=== PATIENT | male | born 1965 | race Caucasian/White ===

== ENCOUNTER 2024-12-07 17:59 | Emergency (ER) | payer MEDICAID ==
[2024-12-07 18:21] VITALS: TEMP 97.7
--- NOTE | 2024-12-07 18:40 | ERPHSYRPT ---
<GARCIALEONARDO OSBORNDO Aashish - Last Filed: 12/07/24 18:41> - History of Present Illness Time Seen by Provider: 12/07/24 18:20 Historian: patient, EMS Exam Limitations: no limitations Patient Subjective Stated Complaint: Pt reports he was watching tv when she started having left sided chest pain. EMS was called who gave him one nitro and 4 tabs of 81mg aspirin which decreased pts chest pain. Triage Nursing Assessment: Pt alert and oriented x3. Respirations easy/nonlabored. Skin w/p/d. Transfered from EMS cot to ED cot with slow gait. S1 and S2 auscultated. Physician History: This is a cachectic appearing 59-year-old white male who was brought to the emergency department by the paramedics. Patient is homeless and currently living in a motel. He is not taking any medications. He has no cardiac history per his report. It appears to me the patient is not the best historian. Patient states he is supposed to be on thyroid medication but is not on it. Patient was watching TV when he started having significant left anterior chest pain without radiation. He was given 4 baby aspirin and 1 nitroglycerin by the paramedics. His symptoms did improve but did not completely resolve his pain. Patient is a daily smoker of tobacco cigarettes. Patient also complains of significant generalized body pain. Timing/Duration: today Quality: aching, sharpness Location: other (Anterior chest) Chest Pain Radiation: no radiation Severity of Pain-Max: moderate Severity of Pain-Current: mild Modifying Factors: Improves With: nitroglycerin, aspirin Associated Symptoms: denies symptoms Prior Chest Pain/Cardiac Workup: no prior chest pain, no prior cardiac workup Nitro Today/Relief: 0.4 mg x 1, provided by EMS Aspirin Treatment Today: 81 mg x 4, provided by EMS Allergies/Adverse Reactions: doxycycline [From Vibramycin] Adverse Reaction (Verified 12/07/24 18:06) Penicillins Adverse Reaction (Verified 12/07/24 18:06) Home Medications: No Reportable Medications [No Reported Medications] 12/07/24 [History] Hx Tetanus, Diphtheria Vaccination/Date Given: (unknown) Hx Influenza Vaccination/Date Given: No Travel Risk - International Travel Have you traveled outside of the country in past 3 weeks: No - Emerging Infectious Disease Are you exhibiting symptoms associated with any current EIDs: Yes - Review of Systems Constitutional: No Symptoms Eyes: No Symptoms Ears, Nose, & Throat: No Symptoms Respiratory: No Symptoms Cardiac: Chest Pain Abdominal/Gastrointestinal: No Symptoms Genitourinary Symptoms: No Symptoms Musculoskeletal: Arthralgias, Myalgias Skin: No Symptoms Neurological: No Symptoms Psychological: No Symptoms Endocrine: No Symptoms Hematologic/Lymphatic: No Symptoms Immunological/Allergic: No Symptoms All Other Systems: Reviewed and Negative - Past Medical History Pertinent Past Medical History: Yes Respiratory History: Other Endocrine Medical History: Hyperthyroidism Psycho-Social History: Anxiety, Depression Other Medical History: mass right lung - Past Surgical History Past Surgical History: No - Social History Smoking Status: Current every day smoker Exposure to second hand smoke: No Drug Use: marijuana - Social Determinants of Health Will the patient participate in the screening: Declined to provide Comment: pts states "im living in a motel right now". - Physical Exam General Appearance: no apparent distress, alert, anxiety, cachetic Eye Exam: PERRL/EOMI, eyes nml inspection Ears, Nose, Throat Exam: normal ENT inspection, moist mucous membranes Neck Exam: normal inspection, non-tender, supple, full range of motion Respiratory Exam: normal breath sounds, chest tenderness, lungs clear (Left anterior chest), airway intact, No respiratory distress Cardiovascular Exam: regular rate/rhythm, normal heart sounds, normal peripheral pulses Gastrointestinal/Abdomen Exam: soft, normal bowel sounds, No tenderness Rectal Exam: deferred, not done Back Exam: normal inspection, normal range of motion, No CVA tenderness Extremity Exam: normal inspection, normal range of motion, pelvis stable, tenderness (Complains of muscle aches and pains right hand worse than left. He did fall a week and a half ago) Neurologic Exam: alert, oriented x 3, cooperative, photo printer II-XII nml as tested, sensation nml Skin Exam: normal color, warm, dry Lymphatic Exam: No adenopathy SpO2 Interpretation: normal SpO2: 99 O2 Delivery: Room Air - Course Nursing assessment & vital signs reviewed: Yes EKG Interpreted by Me: RATE (81), Sinus Rhythm, NORMAL AXIS, NORMAL INTERVALS, NORMAL QRS, Other (No acute ischemic changes on today's twelve-lead EKG. QTc is 420. No comparison EKG available) - Progress Progress Note: 12/07/24 18:42 My medical decision making of the assignment of moderate complexity to this patient's medical issue today is based on review of the patient's past medical history review of the patient's medication list, reviewed patient drug allergy list, history present illness and physical findings on examination. The workup in this patient includes placement of intravenous line, twelve-lead EKG, CBC, CMP, D-dimer, troponin level, magnesium level, thyroid function test, chest x- ray. Will provide the patient with intravenous Zofran and morphine. Differential diagnosis includes but is not limited to myocardial infarction, electrolyte abnormalities, thyroid function test abnormalities, arrhythmias, pneumonia I am transferring care of this patient to Dr. Samson at shift change. I am reviewing the patient complaint, physical findings on examination and workup results that are pending. He will follow-up on the workup results and make final disposition. - Departure Departure Disposition: Home Clinical Impression: Nonspecific chest pain Condition: Stable Critical Care Time: No Instructions: Chest Pain (DC) <SHEILA SAMSON - Last Filed: 12/07/24 21:30> - Nursing Vital Signs Nursing Vital Signs: Initial Vital Signs Temperature 97.7 F 12/07/24 18:01 Pulse Rate 78 12/07/24 18:01 Respiratory Rate 17 12/07/24 18:01 Blood Pressure 109/70 12/07/24 18:01 O2 Sat by Pulse Oximetry 99 12/07/24 18:01 Pain Scale Pain Intensity 0 Ordered Tests: Active Orders 24 hr Category Date Time Status Flexographic Press Operator STAT Care 12/07/24 18:51 Active EKG-ER Only STAT Care 12/07/24 18:50 Active IV Insertion STAT Care 12/07/24 18:50 Active NPO (ED) STAT Care 12/07/24 18:50 Active Oxygen-ED Only Nasal Cannula 2 lpm Care 12/07/24 18:50 Active BMP Stat Lab 12/07/24 19:10 Completed CBC W DIFF Stat Lab 12/07/24 19:10 Completed D-DIMER QUANTITATIVE Stat Lab 12/07/24 19:10 Completed TROPONIN Q4H Lab 12/07/24 19:10 Completed TROPONIN Q4H Lab 12/07/24 23:00 Ordered TROPONIN Q4H Lab 12/08/24 03:00 Ordered TSH [TSH, 3RD Generation] Stat Lab 12/07/24 19:10 Completed UA W/RFX UR CULTURE Stat Lab 12/07/24 19:41 Completed Urine Triage Profile Stat Lab 12/07/24 19:41 Completed Medication Summary Discontinued Medications Generic Name Dose Route Start Last Admin Trade Name Sadaf PRN Reason Stop Dose Admin Morphine Sulfate 4 mg 12/07/24 18:58 12/07/24 19:03 Morphine Sulfate 4 Mg/Ml Injection IV 12/07/24 18:59 4 mg STAT ONE Administration Morphine Sulfate Confirm 12/07/24 19:00 Morphine Sulfate 4 Mg/Ml Injection Administered 12/07/24 19:01 Dose 4 mg .ROUTE .STK-MED ONE Ondansetron HCl 4 mg 12/07/24 18:58 12/07/24 19:02 Ondansetron Hcl 4 Mg/2 Ml Vial IV 12/07/24 18:59 4 mg STAT ONE Administration Ondansetron HCl Confirm 12/07/24 19:00 Ondansetron Hcl 4 Mg/2 Ml Vial Administered 12/07/24 19:01 Dose 4 mg .ROUTE .STK-MED ONE Lab/Rad Data: Laboratory Result Diagrams 12/07/24 19:10 12/07/24 19:10 Laboratory Results 12/07/24 12/07/24 12/07/24 Range/Units 19:41 19:41 19:10 WBC (4.23-9.07) x10^3/uL RBC (4.63-6.08) x10^6/uL Hgb (13.7-17.5) g/dL Hct (40.1-51.0) % MCV (79.0-92.2) fL MCH (25.7-32.2) pg MCHC (32.3-36.5) g/dL RDW (11.6-14.4) % Plt Count (163-337) x10^3/uL MPV (9.4-12.4) fL Gran % (34.0-67.9) % Immature Gran % (Auto) (0.001-0.429) % Nucleat RBC Rel Count (0.00-0.2) % Eos # (Auto) (0.04-0.54) x10^3/uL Immature Gran # (Auto) (0.001-0.031) x10^3u/L Absolute Lymphs (auto) (1.32-3.57) x10^3/uL Absolute Monos (auto) (0.30-0.82) x10^3/uL Absolute Nucleated RBC (0.00-0.012) x10^3u/L Lymphocytes % (21.8-53.1) % Monocytes % (5.3-12.2) % Eosinophils % (0.8-7.0) % Basophils % (0.2-1.2) % Absolute Granulocytes (1.78-5.38) x10^3/uL Basophils # (0.01-0.08) x10^3/uL D-Dimer 0.22 (0.0-0.50) mg/L Sodium (135-145) mmol/L Potassium (3.5-5.1) mmol/L Chloride (98-107) mmol/L Carbon Dioxide (22-30) mmol/L Anion Gap (5-15) MEQ/L BUN (9-20) mg/dL Creatinine (0.66-1.25) mg/dL Estimated GFR ML/MIN Glucose (74-106) mg/dL Calcium (8.4-10.2) mg/dL Troponin I (0.000-0.033) ng/mL Free T4 (0.78-2.19) ng/dL TSH 3rd Generation (0.470-4.680) mIU/L Urine Color Yellow (Yellow) Urine Appearance Clear (Clear) Urine pH 5.5 (4.6-8.0) Ur Specific Palmer >=1.030 A (1.005-1.030) Urine Protein Trace A (Negative) Urine Glucose (UA) 250 A (Negative) mg/dL Urine Ketones Trace A (Negative) Urine Blood Negative (Negative) Urine Nitrite Negative (Negative) Urine Bilirubin Negative (Negative) Urine Urobilinogen 0.2 (0.2) mg/dL Ur Leukocyte Esterase Negative (Negative) U Hyaline Cast (Auto) NONE SEEN (0-2) /LPF Urine Microscopic RBC 0-2 (0-5) /HPF Urine Microscopic WBC 0-2 (0-5) /HPF Ur Epithelial Cells None Seen (None Seen) /HPF Urine Bacteria None Seen (None Seen) /HPF Urine Culture Reflexed NO (NO) Urine Opiates Level POSITIVE A (NEGATIVE) Ur Methadone NEGATIVE (NEGATIVE) Urine Barbiturates NEGATIVE (NEGATIVE) Ur Phencyclidine (PCP) NEGATIVE (NEGATIVE) Urine Amphetamine NEGATIVE (NEGATIVE) U Benzodiazepine Level NEGATIVE (NEGATIVE) Urine Cocaine NEGATIVE (NEGATIVE) Urine Marijuana (THC) POSITIVE A (NEGATIVE) 12/07/24 12/07/24 12/07/24 Range/Units 19:10 19:10 19:10 WBC (4.23-9.07) x10^3/uL RBC (4.63-6.08) x10^6/uL Hgb (13.7-17.5) g/dL Hct (40.1-51.0) % MCV (79.0-92.2) fL MCH (25.7-32.2) pg MCHC (32.3-36.5) g/dL RDW (11.6-14.4) % Plt Count (163-337) x10^3/uL MPV (9.4-12.4) fL Gran % (34.0-67.9) % Immature Gran % (Auto) (0.001-0.429) % Nucleat RBC Rel Count (0.00-0.2) % Eos # (Auto) (0.04-0.54) x10^3/uL Immature Gran # (Auto) (0.001-0.031) x10^3u/L Absolute Lymphs (auto) (1.32-3.57) x10^3/uL Absolute Monos (auto) (0.30-0.82) x10^3/uL Absolute Nucleated RBC (0.00-0.012) x10^3u/L Lymphocytes % (21.8-53.1) % Monocytes % (5.3-12.2) % Eosinophils % (0.8-7.0) % Basophils % (0.2-1.2) % Absolute Granulocytes (1.78-5.38) x10^3/uL Basophils # (0.01-0.08) x10^3/uL D-Dimer (0.0-0.50) mg/L Sodium (135-145) mmol/L Potassium (3.5-5.1) mmol/L Chloride (98-107) mmol/L Carbon Dioxide (22-30) mmol/L Anion Gap (5-15) MEQ/L BUN (9-20) mg/dL Creatinine (0.66-1.25) mg/dL Estimated GFR ML/MIN Glucose (74-106) mg/dL Calcium (8.4-10.2) mg/dL Troponin I < 0.012 (0.000-0.033) ng/mL Free T4 1.49 (0.78-2.19) ng/dL TSH 3rd Generation 0.710 (0.470-4.680) mIU/L Urine Color (Yellow) Urine Appearance (Clear) Urine pH (4.6-8.0) Ur Specific Palmer (1.005-1.030) Urine Protein (Negative) Urine Glucose (UA) (Negative) mg/dL Urine Ketones (Negative) Urine Blood (Negative) Urine Nitrite (Negative) Urine Bilirubin (Negative) Urine Urobilinogen (0.2) mg/dL Ur Leukocyte Esterase (Negative) U Hyaline Cast (Auto) (0-2) /LPF Urine Microscopic RBC (0-5) /HPF Urine Microscopic WBC (0-5) /HPF Ur Epithelial Cells (None Seen) /HPF Urine Bacteria (None Seen) /HPF Urine Culture Reflexed (NO) Urine Opiates Level (NEGATIVE) Ur Methadone (NEGATIVE) Urine Barbiturates (NEGATIVE) Ur Phencyclidine (PCP) (NEGATIVE) Urine Amphetamine (NEGATIVE) U Benzodiazepine Level (NEGATIVE) Urine Cocaine (NEGATIVE) Urine Marijuana (THC) (NEGATIVE) 12/07/24 12/07/24 Range/Units 19:10 19:10 WBC 3.7 L (4.23-9.07) x10^3/uL RBC 4.52 L (4.63-6.08) x10^6/uL Hgb 14.8 (13.7-17.5) g/dL Hct 42.3 (40.1-51.0) % MCV 93.6 H (79.0-92.2) fL MCH 32.7 H (25.7-32.2) pg MCHC 35.0 (32.3-36.5) g/dL RDW 12.2 (11.6-14.4) % Plt Count 183 (163-337) x10^3/uL MPV 9.6 (9.4-12.4) fL Gran % 54.7 (34.0-67.9) % Immature Gran % (Auto) 0.0 L (0.001-0.429) % Nucleat RBC Rel Count 0.0 (0.00-0.2) % Eos # (Auto) 0.11 (0.04-0.54) x10^3/uL Immature Gran # (Auto) 0.00 L (0.001-0.031) x10^3u/L Absolute Lymphs (auto) 1.23 L (1.32-3.57) x10^3/uL Absolute Monos (auto) 0.33 (0.30-0.82) x10^3/uL Absolute Nucleated RBC 0.00 (0.00-0.012) x10^3u/L Lymphocytes % 33.1 (21.8-53.1) % Monocytes % 8.9 (5.3-12.2) % Eosinophils % 3.0 (0.8-7.0) % Basophils % 0.3 (0.2-1.2) % Absolute Granulocytes 2.04 (1.78-5.38) x10^3/uL Basophils # 0.01 (0.01-0.08) x10^3/uL D-Dimer (0.0-0.50) mg/L Sodium 135 (135-145) mmol/L Potassium 4.4 (3.5-5.1) mmol/L Chloride 103 (98-107) mmol/L Carbon Dioxide 25 (22-30) mmol/L Anion Gap 11.5 (5-15) MEQ/L BUN 17 (9-20) mg/dL Creatinine 0.73 (0.66-1.25) mg/dL Estimated GFR 105.5 ML/MIN Glucose 113 H (74-106) mg/dL Calcium 9.4 (8.4-10.2) mg/dL Troponin I (0.000-0.033) ng/mL Free T4 (0.78-2.19) ng/dL TSH 3rd Generation (0.470-4.680) mIU/L Urine Color (Yellow) Urine Appearance (Clear) Urine pH (4.6-8.0) Ur Specific Palmer (1.005-1.030) Urine Protein (Negative) Urine Glucose (UA) (Negative) mg/dL Urine Ketones (Negative) Urine Blood (Negative) Urine Nitrite (Negative) Urine Bilirubin (Negative) Urine Urobilinogen (0.2) mg/dL Ur Leukocyte Esterase (Negative) U Hyaline Cast (Auto) (0-2) /LPF Urine Microscopic RBC (0-5) /HPF Urine Microscopic WBC (0-5) /HPF Ur Epithelial Cells (None Seen) /HPF Urine Bacteria (None Seen) /HPF Urine Culture Reflexed (NO) Urine Opiates Level (NEGATIVE) Ur Methadone (NEGATIVE) Urine Barbiturates (NEGATIVE) Ur Phencyclidine (PCP) (NEGATIVE) Urine Amphetamine (NEGATIVE) U Benzodiazepine Level (NEGATIVE) Urine Cocaine (NEGATIVE) Urine Marijuana (THC) (NEGATIVE)
[2024-12-07] MEDS ORDERED: MORPHINE SULFATE 4 MG INJ ONE (19:00)
[2024-12-07] MEDS ORDERED: Zofran 4 MG/2 ML VIAL ONE (19:00)
[2024-12-07] MEDS: Zofran 4 MG/2 ML VIAL IV ONE (19:02)
[2024-12-07] MEDS: MORPHINE SULFATE 4 MG INJ IV ONE (19:03)
[2024-12-07 19:34] LABS: Absolute Neutrophil Ct (ANC) 2.04 x10^3/uL (1.78-5.38); BASOPHIL % 0.3 % (0.2-1.2); Basophil (Absolute #) 0.01 x10^3/uL (0.01-0.08); Eosinophil (Absolute #) 0.11 x10^3/uL (0.04-0.54); Hematocrit 42.3 % (40.1-51.0); Hemoglobin 14.8 g/dL (13.7-17.5); Lymphocyte (Absolute #) 1.23 x10^3/uL (1.32-3.57); Lymphocytes % 33.1 % (21.8-53.1); Mean Cell Volume 93.6 fL (79.0-92.2); Mean Corpuscular Hemoglobin 32.7 pg (25.7-32.2); Mean Platelet Volume 9.6 fL (9.4-12.4); Monocyte (Absolute #) 0.33 x10^3/uL (0.30-0.82); Monocytes % 8.9 % (5.3-12.2); Neutrophil % 54.7 % (34.0-67.9); Platelet Count 183 x10^3/uL (163-337); Red Blood Count 4.52 x10^6/uL (4.63-6.08); Red Cell Distribution Width 12.2 % (11.6-14.4); White Blood Count 3.7 x10^3/uL (4.23-9.07)
[2024-12-07 19:59] LABS: ANION GAP 11.5 MEQ/L (5-15); Calcium 9.4 mg/dL (8.4-10.2); Creatinine 1 0.73 mg/dL (0.66-1.25); EST GLOMERULAR FILTRATION RATE 105.5 ML/MIN; Potassium 4.4 mmol/L (3.5-5.1)
[2024-12-07 20:00] LABS: Appearance Clear (Clear); Bacteria None Seen /HPF (None Seen); Bilirubin Negative (Negative); Blood Negative (Negative); Epithelial Cells None Seen /HPF (None Seen); Glucose, Urine 250 mg/dL (Negative); Hyaline Casts NONE SEEN /LPF (0-2); Ketones Trace (Negative); Leukocyte Esterase Negative (Negative); Nitrite Negative (Negative); Ph 5.5 (4.6-8.0); Protein,Urine Dip Trace (Negative); RBC 0-2 /HPF (0-5); Specific Gravity >=1.030 (1.005-1.030); Urobilinogen 0.2 mg/dL (0.2); WBC 0-2 /HPF (0-5)
[2024-12-07 20:09] LABS: Amphetamine,Urine NEGATIVE (NEGATIVE); Barbiturate,Urine NEGATIVE (NEGATIVE); Benzodiazepine,Urine NEGATIVE (NEGATIVE); Cocaine,Urine NEGATIVE (NEGATIVE); Methadone,Urine NEGATIVE (NEGATIVE); Opiate,Urine POSITIVE (NEGATIVE); PCP,Urine NEGATIVE (NEGATIVE); THC,Urine POSITIVE (NEGATIVE)
[2024-12-07 21:24] VITALS: BP 103/64; PULSE 59; RESP 16; O2SAT 97
== END 2024-12-07 21:47 | disposition home or self-care (01) ==
LOC: ED 17:59
DX: R05.9 Cough, unspecified (principal); M79.10 Myalgia, unspecified site; I10 Essential (primary) hypertension; Z72.0 Tobacco use; Z59.811 Housing instability, housed, with risk of homelessness
CPT/HCPCS: 36415; 80048; 80307; 81001; 84439; 84443; 84484; 85025; 85379; 93005; 93041; 96374; 96375; 99284; J2270; J2405